=== PATIENT | female | born 1990 ===

== ENCOUNTER 2021-07-18 19:06 | Outpatient (CLI) | payer OTHER ==
[2021-07-18 19:29] VITALS: BP 98/57
[2021-07-18] MEDS ORDERED: LACTATED RINGERS 500 ML IV ONE (19:34)
--- NOTE | 2021-07-18 22:36 | Ultrasound Report ---
ULTRASOUND OBSTETRIC LIMITED ULTRASOUND BIOPHYSICAL PROFILE INDICATION / CLINICAL INFORMATION: Evaluate well being. COMPARISON: None available. FINDINGS: BREATHING MOVEMENT = 2 GROSS BODY MOVEMENT = 2 TONE = 2 QUALITATIVE AMNIOTIC FLUID VOLUME = 2 TOTAL BIOPHYSICAL SCORE = 8/8 AMNIOTIC FLUID INDEX (cm) = 7.2 PRESENTATION: Cephalic. HEART RATE (beats per minute): 130 PLACENTA: and free of the os. MATERNAL ADNEXA: No significant abnormality. MEASUREMENTS: - Biparietal Diameter = 8.72 cm = 35.1 weeks.days - Head Circumference = 28.22 cm = 31.0 weeks.days - Abdominal Circumference = 30.54 cm = 34.3 weeks.days - Femur Length = 6.96 cm = 35.5 weeks.days - Estimated Weight (in grams, if calculated): 2444 ADDITIONAL FINDINGS: None. IMPRESSION: 1. Biophysical Score = 8/8 2. Additional findings as above. Signer Name: Vitaly Burrell MD Signed: 07/18/2021 10:31 PM Workstation Name: [id number]
== END 2021-07-19 00:30 | disposition home or self-care (01) ==
LOC: TRG 19:06 → APU 19:07 → TRG 07-19 00:30
PROVIDERS: ATTEND Obstetrics & Gynecology
DX: O46.93 Antepartum hemorrhage, unspecified, third trimester (principal); Z3A.34 34 weeks gestation of pregnancy
CPT/HCPCS: 76816; 76819; J7120; 76815